=== PATIENT | female | born 1990 | race Caucasian/White ===

== ENCOUNTER 2018-05-01 19:58 | Emergency (ER) | payer MEDICAID, MEDICARE ==
[~2018-05-01] VITALS: Ht 160 cm; Wt 56.7 kg
[2018-05-01 20:07] VITALS: BP 105/65
== END 2018-05-01 21:46 | disposition home or self-care (01) ==
LOC: ED 21:40
DX: R07.89 Other chest pain (principal); F17.210 Nicotine dependence, cigarettes, uncomplicated; R05 Cough
CPT/HCPCS: 71046; 93005; 99284

== ENCOUNTER 2018-09-23 18:17 | Emergency (ER) | payer SELFPAY ==
[~2018-09-23] VITALS: Ht 160 cm; Wt 65.7 kg
[2018-09-23 18:21] VITALS: BP 107/73
[2018-09-23] MEDS ORDERED: LIDOCAINE 1%, 10ML INFIL ONE (19:00)
[2018-09-23] MEDS ORDERED: LIDOCAINE-MPF 1%, 5ML ONE (19:08)
[2018-09-23] MEDS ORDERED: SULFAMETH./TRIMETHOPRIM DS 800MG/160MG TABLET ONE (19:50)
[2018-09-23] MEDS ORDERED: CEPHALEXIN 500 MG CAPSULE ONE (19:50)
[2018-09-23] MEDS ORDERED: CEPHALEXIN 500 MG CAPSULE PO ONE (20:00)
[2018-09-23] MEDS ORDERED: SULFAMETH./TRIMETHOPRIM DS 800MG/160MG TABLET PO ONE (20:00)
== END 2018-09-23 20:14 | disposition home or self-care (01) ==
LOC: ED 20:04
DX: L03.114 Cellulitis of left upper limb (principal); L02.414 Cutaneous abscess of left upper limb
CPT/HCPCS: 10060; 99283; J3490

== ENCOUNTER 2019-02-13 12:30 | Emergency (ER) | payer SELFPAY ==
[~2019-02-13] VITALS: Ht 160 cm; Wt 68.0 kg
[2019-02-13 12:34] VITALS: BP 124/73
--- NOTE | 2019-02-13 12:43 | NUR ---
FIRST CONTACT WITH PT. PT STATES "I HAVE HIVES ALL OVER MY LEGS FOR THE LAST 3 DAYS. I DO HEROIN. I SHOT UP ON MY RIGHT CALF ABOUT 2 WEEKS AGO AND I HAVE THIS SORE." PT HAS BEEN USING HYDROCORTISONE ONLY. PT DENIES ANY OTHER SYMPTOMS. PT'S AOX4. RESPS EVEN AND UNLABORED.
[2019-02-13] MEDS ORDERED: DIPHENHYDRAMINE 25 MG CAPSULE ONE (12:52)
[2019-02-13] MEDS ORDERED: FAMOTIDINE 20 MG TABLET ONE (12:52)
--- NOTE | 2019-02-13 12:56 | NUR ---
PT MEDICATED PER EMAR. PT TOELRATED WELL.
[2019-02-13] MEDS ORDERED: DIPHENHYDRAMINE 25 MG CAPSULE PO ONE (13:00)
[2019-02-13] MEDS ORDERED: FAMOTIDINE 20 MG TABLET PO ONE (13:00)
[2019-02-13 13:22] LABS: ALANINE AMINOTRANSFERASE 69 U/L (12-78); ALBUMIN 3.4 g/dL (3.4-5.0); ANION GAP 5 mmol/L (5-15); CALCIUM 8.3 mg/dL (8.5-10.1); CHLORIDE 107 mmol/L (98-107)
[2019-02-13 13:25] LABS: ALKALINE PHOSPHATASE 61 U/L (45-117); BILIRUBIN,TOTAL 0.3 mg/dL (0.2-1.0); TOTAL PROTEIN 7.9 g/dL (6.4-8.2)
[2019-02-13 13:52] LABS: MEAN CORPUSCULAR HEMOGLOBIN 32.5 pg (27.0-34.8); MEAN CORPUSCULAR HGB CONC 33.1 g/dL (32.4-35.8); MEAN CORPUSCULAR VOLUME 98.1 fL (80-100); MEAN PLATELET VOLUME 9.3 fL (7.4-10.4); PLATELET COUNT 165 x10^3/uL (130-400); RED BLOOD COUNT 3.89 x10^6/uL (3.82-5.3); RED CELL DISTRIBUTION WIDTH 13.2 % (9.6-15.2)
[2019-02-13 13:54] LABS: MD YES
[2019-02-13 13:56] LABS: EOS#(MANUAL) 0.73 x10^3/uL (0.0-0.4); EOS% (MANUAL) 11 % (1-7); LYMPH#(MANUAL) 2.71 x10^3/uL (1-3.4); LYMPHS% (MANUAL) 41 % (22-44); MONOS#(MANUAL) 0.33 x10^3/uL (0.3-2.7); MONOS% (MANUAL) 5 % (2-9); SEG#(MANUAL) 2.84 x10^3/uL (1.8-6.8); SEGS% (MANUAL) 43 % (42-75)
[2019-02-13 13:57] LABS: <PLATELET ESTIMATE> ADEQUATE; <RBC MORPHOLOGY> NORMAL
[2019-02-13 13:58] LABS: <PLT MORPHOLOGY> NORMAL PLT MORPH
--- NOTE | 2019-02-13 14:30 | NUR ---
PT GIVEN DC INSTRUCTIONS AND SCRIPTS. PT EDUCATED REGARIDNG DC MEDICATIONS. PT'S AOX4. RESPS EVEN AND UNLABORED. PT AMB TO DC WITH STEADY GAIT. NO ACUTE DISTRESS AT DC.
== END 2019-02-13 14:31 | disposition home or self-care (01) ==
LOC: ED 14:25
DX: L50.9 Urticaria, unspecified (principal); L03.116 Cellulitis of left lower limb; L03.115 Cellulitis of right lower limb
CPT/HCPCS: 36415; 80053; 85025; 93970; 99284; J7512; Q0163

== ENCOUNTER 2019-03-05 18:19 | Emergency (ER) | payer SELFPAY ==
[~2019-03-05] VITALS: Ht 160 cm; Wt 71.6 kg
--- NOTE | 2019-03-05 18:52 | NUR ---
no answer in lobby
--- NOTE | 2019-03-05 20:58 | NUR ---
PT RETURNED FROM ULTRASOUND. LAB NOW AT BEDSIDE.
[2019-03-05 21:29] LABS: BASOPHILS # (AUTO) 0.01 x10^3/uL (0-0.1); BASOPHILS % (AUTO) 0 % (0-1); EOSINOPHILS # (AUTO) 0.84 x10^3/uL (0-0.4); EOSINOPHILS % (AUTO) 15 % (1-7); LYMPHOCYTES # (AUTO) 1.66 x10^3/uL (1-3.4); LYMPHOCYTES % (AUTO) 30 % (22-44); MD NO; MEAN CORPUSCULAR HEMOGLOBIN 32.7 pg (27.0-34.8); MEAN CORPUSCULAR HGB CONC 33.4 g/dL (32.4-35.8); MEAN CORPUSCULAR VOLUME 97.8 fL (80-100); MONOCYTES % (AUTO) 9 % (2-9); NEUTROPHILS # (AUTO) 2.53 x10^3/uL (1.8-6.8); NEUTROPHILS % (AUTO) 46 % (42-75); PLATELET COUNT 239 x10^3/uL (130-400); RED BLOOD COUNT 3.79 x10^6/uL (3.82-5.3)
[2019-03-05 21:43] LABS: ALANINE AMINOTRANSFERASE 142 U/L (12-78); ALBUMIN 3.2 g/dL (3.4-5.0); ANION GAP 7 mmol/L (5-15); CALCIUM 8.2 mg/dL (8.5-10.1); CHLORIDE 106 mmol/L (98-107)
[2019-03-05 21:47] LABS: ALKALINE PHOSPHATASE 65 U/L (45-117); BILIRUBIN,TOTAL 0.3 mg/dL (0.2-1.0); TOTAL PROTEIN 7.4 g/dL (6.4-8.2)
[2019-03-05 22:08] VITALS: BP 94/50
[2019-03-05 22:27] LABS: CULTURE INDICATED? YES; MICROSCOPIC INDICATED
== END 2019-03-05 22:11 | disposition home or self-care (01) ==
LOC: ED 19:24
DX: R60.0 Localized edema (principal); M79.605 Pain in left leg; M79.604 Pain in right leg; F17.200 Nicotine dependence, unspecified, uncomplicated
CPT/HCPCS: 36415; 71046; 80053; 81001; 83880; 85025; 87086; 93005; 93970; 99284

== ENCOUNTER 2019-09-13 16:47 | Inpatient (IN) | payer SELFPAY ==
[~2019-09-13] VITALS: Ht 160 cm; Wt 67.8 kg
--- NOTE | 2019-09-13 18:15 | NUR ---
assumed care of pt. pt here for multiple c/o. states that she has "lumps" on her head, and that she has a diffuse rash on her torso anterior and posterior. pt also c/o painful intercourse, but denies new partner. denies vaginal bleeding or D/C. pt is lethargic and falling asleep in the middle of her sentences. admits to using IV heroin and smoking methamphetamine. no apparent resp. distress. no family at bedside. lab has been to bedside to draw
--- NOTE | 2019-09-13 18:31 | NUR ---
CXR has been to bedside
[2019-09-13 18:32] LABS: ANION GAP 7 mmol/L (5-15); CALCIUM 8.3 mg/dL (8.5-10.1); CHLORIDE 107 mmol/L (98-107); CREATININE 0.68 mg/dL (0.55-1.02)
[2019-09-13 18:42] LABS: HCT (SEDRATE) 34.9 % (34.6-47.8)
[2019-09-13 18:43] LABS: BASOPHILS # (AUTO) 0.02 x10^3/uL (0-0.1); BASOPHILS % (AUTO) 0 % (0-1); EOSINOPHILS # (AUTO) 0.22 x10^3/uL (0-0.4); EOSINOPHILS % (AUTO) 3 % (1-7); LYMPHOCYTES # (AUTO) 1.89 x10^3/uL (1-3.4); LYMPHOCYTES % (AUTO) 25 % (22-44); MD NO; MEAN CORPUSCULAR HEMOGLOBIN 30.4 pg (27.0-34.8); MEAN CORPUSCULAR HGB CONC 32.7 g/dL (32.4-35.8); MEAN CORPUSCULAR VOLUME 93.1 fL (80-100); MONOCYTES % (AUTO) 9 % (2-9); NEUTROPHILS % (AUTO) 62 % (42-75); PLATELET COUNT 372 x10^3/uL (130-400); RED BLOOD COUNT 3.76 x10^6/uL (3.82-5.3); RED CELL DISTRIBUTION WIDTH 13.4 % (9.6-15.2)
--- NOTE | 2019-09-13 18:43 | NUR ---
pt sleeping. easily arousable
--- NOTE | 2019-09-13 19:00 | NUR ---
report from robert curran
--- NOTE | 2019-09-13 19:02 | NUR ---
pt to US. report to Tammy RÍOS
--- NOTE | 2019-09-13 19:21 | NUR ---
US at bedside.
[2019-09-13] MEDS ORDERED: CEFTRIAXONE PMX 1GM/50ML 50 ML IV ONE ×2 (20:00→21:30)
--- NOTE | 2019-09-13 20:08 | NUR ---
report to robert henderson
--- NOTE | 2019-09-13 20:26 | NUR ---
robert bernabe at bedside for US iv placement
--- NOTE | 2019-09-13 20:27 | NUR ---
per robert curran 2 sets of blood cultures drawn
[2019-09-13] MEDS ORDERED: CEFTRIAXONE PMX 1GM/50ML 50 ML ONE (20:28)
--- NOTE | 2019-09-13 20:38 | NUR ---
srinivasa attempting to place IV with difficulty due to pt's IV drug use
[2019-09-13] MEDS: SODIUM CHLORIDE 0.9% 1,000 ML IV SCH ×2 (21:07→23:11)
[2019-09-13] MEDS ORDERED: ACETAMINOPHEN 325 MG TABLET PO PRN (21:30)
[2019-09-13] MEDS ORDERED: ONDANSETRON 2MG/ML, 2ML IVPush PRN (21:30)
[2019-09-13] MEDS ORDERED: DOXYCYCLINE 100 MG in DEXTROSE 5% 250 ML IV SCH (21:30)
[2019-09-13] MEDS ORDERED: ONDANSETRON ODT 4 MG PO PRN (21:30)
[2019-09-13] MEDS ORDERED: POLYETHYLENE GLYCOL 17 GM PACKET PO PRN (21:30)
[2019-09-13] MEDS ORDERED: DOCUSATE 100 MG CAPSULE PO PRN (21:30)
[2019-09-13] MEDS ORDERED: OXYcodone IR 5MG TABLET PO PRN (21:30)
[2019-09-13] MEDS ORDERED: ENOXAPARIN 40 MG/0.4 ML SQ SCH (21:30)
[2019-09-13] MEDS ORDERED: morphine SULFATE 10 MG/ML, 1ML IVPush PRN (21:30)
[2019-09-13] MEDS ORDERED: PROMETHAZINE 25 MG/ML, 1ML IM PRN (21:30)
[2019-09-13] MEDS ORDERED: BISACODYL 10 MG SUPP PR PRN (21:30)
--- NOTE | 2019-09-13 21:44 | NUR ---
robert vences in to attempt iv access
[2019-09-13 22:19] LABS: FREE T4 (FREE THYROXINE) 1.48 ng/dL (0.76-1.46)
--- NOTE | 2019-09-13 22:41 | NUR ---
unable to obtain iv access. dr nova notified via phone. pt sent upstairs and recieving robert henderson notified. dr nova said he is going to change the orders for IV rocephin to IM rocephin. santiago notified and aware of orders to be changed.
[2019-09-13 22:59] VITALS: BP 94/62
[2019-09-13] MEDS ORDERED: DOXYCYCLINE 100MG TABLET PO SCH (23:00)
[2019-09-14 01:36] VITALS: BP 98/63
[2019-09-14] MEDS ORDERED: CEFTRIAXONE PMX 2GM/50ML 50 ML IV SCH (17:00)
== END 2019-09-14 04:15 | disposition left against medical advice (07) | DRG 195 ==
LOC: ED 20:15 → EDIP 21:43 → 3N 22:50
PROVIDERS: ADMIT Internal Medicine; ATTEND Internal Medicine
DX: J18.9 Pneumonia, unspecified organism (principal); L50.9 Urticaria, unspecified; N94.10 Unspecified dyspareunia; H02.844 Edema of left upper eyelid; F17.210 Nicotine dependence, cigarettes, uncomplicated; Z53.21 Procedure and treatment not carried out due to patient leaving prior to being seen by health care provider; F11.10 Opioid abuse, uncomplicated; Z80.41 Family history of malignant neoplasm of ovary; Z88.8 Allergy status to other drugs, medicaments and biological substances
CPT/HCPCS: 36415; 71045; 76830; 80048; 82040; 83036; 83735; 84439; 84443; 84703; 85025; 85651; 86140; 87040; 87806; 93005; 99285; G0378; G0475

== ENCOUNTER 2020-01-18 22:38 | Emergency (ER) | payer SELFPAY ==
[~2020-01-18] VITALS: Ht 160 cm; Wt 69.9 kg
[2020-01-18 23:08] VITALS: BP 116/77
--- NOTE | 2020-01-18 23:08 | NUR ---
ZONIA RN ASSISTING PRIMARY RN JOVANNY. 29 Y/O F PRESENTS STATING "FELL AND HURT MY HAND ABOUT 12 HOURS AGO BUT IT'S BEEN SWELLING FOR LIKE 24 HOURS. MY WRIST, HAND AND LOWER ARM HURT, I GOT MY RING OFF FOR YOU GUYS, I THINK IT'S BROKEN AND I NEED A CAST TO GO." PT WITH SIGNIFICANT SWELLING TO RAND HAND AND WRIST. CMS INTACT, CAP REFILL BRISK. RADIAL PULSE DIFFICULT TO PALPATE DUE TO PT PAIN LEVEL, UNABLE TO TOLERATE PALPATION, BRACHIAL PULSE NORMAL AND STRONG. SKIN WARM, DRY. ECCYMOSIS AND ERYTHEMA PRESENT. RATES PAIN 10/10. PT ABLE TO MOVE RUE SLOWLY WITH SIGNIFICANT REPORT OF PAIN. PT DROWSY, DIFFICULTY KEEPING EYES OPEN BUT CONVERSES AND ANSWERS QUESTIONS APPROPRIATELY, A&OX4. REPORTS "USED HERION AROUND 3 HOURS AGO." SIGNIFICANT OTHER AT BEDSIDE. FALL PRECAUTIONS IN PLACE. SIDE RAILS UPX2. RUE ELEVATED AND SUPPORTED WITH ICE PACKS APPLIED FOR SWELLING AND PAIN. AWAITING EVAL BY ERP.
--- NOTE | 2020-01-18 23:20 | NUR ---
TILA TAYLOR AT BEDSIDE FOR EVALUATION
--- NOTE | 2020-01-18 23:30 | NUR ---
REPORT AND TRANSFER OF CARE TO PRIMARY RN'S KEVEN.
--- NOTE | 2020-01-19 01:31 | NUR ---
Pt splinted and provided sling. While explaining discharge information, pt asked for a prescription for pain medication. When explaining that we would not be providing a prescription for narcotics, pt got angry and stated "like your norcos would go up against the gram of herion I use daily." Pt provided dc papers and ambulated with friend out of ER
== END 2020-01-19 01:36 | disposition home or self-care (01) ==
LOC: ED 01-19 00:27
DX: S62.306A Unspecified fracture of fifth metacarpal bone, right hand, initial encounter for closed fracture (principal); S52.91XA Unspecified fracture of right forearm, initial encounter for closed fracture; W01.0XXA Fall on same level from slipping, tripping and stumbling without subsequent striking against object, initial encounter; Y93.89 Activity, other specified; Y92.89 Other specified places as the place of occurrence of the external cause; Y99.8 Other external cause status
CPT/HCPCS: 29125; 99284

== ENCOUNTER 2020-09-07 06:19 | Emergency (ER) | payer MEDICAID ==
[~2020-09-07] VITALS: Ht 160 cm; Wt 72.9 kg
[2020-09-07 06:59] VITALS: BP 128/72
== END 2020-09-07 07:01 | disposition home or self-care (01) ==
LOC: ED 06:30
DX: J34.0 Abscess, furuncle and carbuncle of nose (principal)
CPT/HCPCS: 99283

== ENCOUNTER 2020-12-08 00:21 | Outpatient (CLI) | payer MEDICAID ==
[2020-12-08 00:53] LABS: MICROSCOPIC INDICATED
[2020-12-08 00:59] LABS: AMPHETAMINE SCREEN, URINE Positive (Negative); BARBITURATE SCREEN, URINE Negative (Negative); BENZODIAZEPINE SCREEN, URINE Negative (Negative); CANNABINOID SCREEN, URINE Negative (Negative); COCAINE SCREEN, URINE Negative (Negative); METHADONE SCREEN, URINE Negative (Negative); OPIATE SCREEN, URINE Positive (Negative)
[2020-12-08 01:56] LABS: BASOPHILS % (AUTO) 1 % (0-1); EOSINOPHILS % (AUTO) 2 % (1-7); LYMPHOCYTES % (AUTO) 22 % (22-44); MEAN CORPUSCULAR HEMOGLOBIN 30.9 pg (27.0-34.8); MEAN CORPUSCULAR HGB CONC 34.2 g/dL (32.4-35.8); MEAN PLATELET VOLUME 9.2 fL (7.4-10.4); MONOCYTES % (AUTO) 9 % (2-9); NEUTROPHILS % (AUTO) 67 % (42-75); PLATELET COUNT 194 x10^3/uL (130-400); RED BLOOD COUNT 3.18 x10^6/uL (3.82-5.3); RED CELL DISTRIBUTION WIDTH 13.7 % (9.6-15.2)
[2020-12-08 02:05] LABS: MD NO
[2020-12-08 02:06] LABS: ALANINE AMINOTRANSFERASE 46 U/L (12-78); ALBUMIN 2.4 g/dL (3.4-5.0); ANION GAP 6 mmol/L (5-15); CALCIUM 7.9 mg/dL (8.5-10.1); CHLORIDE 110 mmol/L (98-107); CREATININE 0.52 mg/dL (0.55-1.02)
[2020-12-08 02:09] LABS: ALKALINE PHOSPHATASE 155 U/L (45-117); BILIRUBIN,TOTAL 0.4 mg/dL (0.2-1.0); TOTAL PROTEIN 6.7 g/dL (6.4-8.2)
[2020-12-08] MEDS ORDERED: ACYC15OI17 PO (02:41)
[2020-12-08] MEDS ORDERED: ACYC200C13 PO (02:41)
[2020-12-08] MEDS ORDERED: FERR324T5 PO (02:43)
[2020-12-08] MEDS ORDERED: DOCU-131 PO (02:44)
== END 2020-12-08 02:51 | disposition home or self-care (01) ==
LOC: LDOP 00:21
PROVIDERS: ATTEND Student in an Organized Health Care Education/Training Program
DX: O12.03 Gestational edema, third trimester (principal); Z3A.34 34 weeks gestation of pregnancy
CPT/HCPCS: 36415; 59025; 76805; 80053; 80307; 81001; 82570; 84156; 84550; 85025; 86592; 86762; 86780; 86850; 86900; 87086; 87340; 87491; 87591; 87806; G0475

== ENCOUNTER 2020-12-15 06:19 | Emergency (ER) | payer MEDICAID ==
[~2020-12-15] VITALS: Ht 160 cm; Wt 80.2 kg
[~2020-12-15 06:19] MED LIST: ACYC15OI17 PO; ACYC200C13 PO; DOCU-131 PO; FERR324T5 PO
[2020-12-15 06:21] VITALS: BP 120/82
--- NOTE | 2020-12-15 06:32 | NUR ---
ON 12/08 PT HADA POSITVE SYPHILIS TEST AND WAS CALLED AND TOLD TO COME BACK FOR A SHOT
[2020-12-15] MEDS ORDERED: BICILLIN-LA 2,400,000 UNITS/4 ML IM ONE (07:00)
== END 2020-12-15 07:20 | disposition home or self-care (01) ==
LOC: ED 06:54
DX: A51.0 Primary genital syphilis (principal)
CPT/HCPCS: 96372; 99283; J0561

== ENCOUNTER 2021-01-21 14:23 | Inpatient (IN) | payer MEDICAID ==
[~2021-01-21] VITALS: Ht 160 cm; Wt 88.2 kg
[2021-01-21 14:54] VITALS: BP 121/81
[2021-01-21] MEDS ORDERED: METOCLOPRAMIDE 5 MG/ML, 2ML ONE (15:14)
[2021-01-21] MEDS ORDERED: SODIUM CITRATE/CITRIC ACID 15 ML UDC ONE (15:15)
[2021-01-21] MEDS ORDERED: SODIUM BICARBONATE 1 MEQ/ML, 50ML VIAL ONE (15:22)
[2021-01-21] MEDS ORDERED: FENTANYL PF 100 MCG/2ML ONE (15:22)
[2021-01-21] MEDS ORDERED: DEXAMETHASONE 4 MG/ML, 1ML ONE (15:22)
[2021-01-21] MEDS ORDERED: PHENYLEPHRINE 10 MG/ML ONE (15:22)
[2021-01-21] MEDS ORDERED: EPHEDRINE 50 MG/ML, 1ML ONE (15:22)
[2021-01-21] MEDS ORDERED: KETOROLAC 30 MG/1 ML ONE (15:22)
[2021-01-21] MEDS ORDERED: CEFAZOLIN 1,000 MG ONE (15:22)
[2021-01-21] MEDS ORDERED: ONDANSETRON 2MG/ML, 2ML ONE (15:22)
[2021-01-21] MEDS ORDERED: OXYTOCIN 10 UNITS/ML, 1ML ONE (15:22)
[2021-01-21] MEDS ORDERED: ONDANSETRON 2MG/ML, 2ML IVPush ONE (15:30)
[2021-01-21] MEDS ORDERED: AZITHROMYCIN 500 MG in SODIUM CHLORIDE 0.9% 250 ML IV ONE ×2 (15:30→16:00)
[2021-01-21] MEDS ORDERED: LACTATED RINGERS 1,000 ML IVBOLUS ONE ×2 (15:30→16:00)
[2021-01-21 15:34] LABS: BASOPHILS % (AUTO) 1 % (0-1); EOSINOPHILS % (AUTO) 2 % (1-7); LYMPHOCYTES % (AUTO) 21 % (22-44); MEAN CORPUSCULAR HEMOGLOBIN 29.5 pg (27.0-34.8); MEAN CORPUSCULAR HGB CONC 33.4 g/dL (32.4-35.8); MEAN PLATELET VOLUME 9.8 fL (7.4-10.4); MONOCYTES % (AUTO) 8 % (2-9); NEUTROPHILS % (AUTO) 69 % (42-75); PLATELET COUNT 124 x10^3/uL (130-400); RED BLOOD COUNT 3.58 x10^6/uL (3.82-5.3); RED CELL DISTRIBUTION WIDTH 16.1 % (9.6-15.2)
[2021-01-21] MEDS ORDERED: hydrALAzine 20 MG/ML, 1ML IV PRN (16:00)
[2021-01-21] MEDS ORDERED: MIDAZOLAM 1 MG/ML, 2ML IV PRN (16:00)
[2021-01-21] MEDS ORDERED: FENTANYL PF 100 MCG/2ML IV PRN (16:00)
[2021-01-21] MEDS ORDERED: LABETALOL 5MG/ML, 20ML IV PRN (16:00)
[2021-01-21] MEDS ORDERED: OXYcodone 5 MG/5 ML ORAL.SOL UDC PO PRN (16:00)
[2021-01-21] MEDS ORDERED: METOPROLOL 1 MG/ML, 5ML IV PRN (16:00)
[2021-01-21] MEDS ORDERED: MEPERIDINE/PF 25MG/0.5ML IVPush PRN (16:00)
[2021-01-21] MEDS ORDERED: METOCLOPRAMIDE 5 MG/ML, 2ML IV ONE (16:00)
[2021-01-21] MEDS ORDERED: HYDROcodone/APAP 7.5-325MG/15ML UDC PO PRN (16:00)
[2021-01-21] MEDS ORDERED: PROMETHAZINE 25 MG/ML, 1ML IV PRN (16:00)
[2021-01-21] MEDS ORDERED: ALBUTEROL/IPRATROPIUM 2.5MG/0.5MG, 3 ML NPPB PRN (16:00)
[2021-01-21] MEDS ORDERED: ONDANSETRON 2MG/ML, 2ML IVPush PRN (16:00)
[2021-01-21] MEDS ORDERED: SODIUM CITRATE/CITRIC ACID 30 ML UDC PO ONE (16:00)
[2021-01-21] MEDS ORDERED: HYDROmorphone 2 MG/ML, 1ML IVPush PRN (16:00)
[2021-01-21] MEDS ORDERED: NEWBORN KIT ONE (16:06)
[2021-01-21 16:25] LABS: AMPHETAMINE SCREEN, URINE Positive (Negative); BARBITURATE SCREEN, URINE Negative (Negative); BENZODIAZEPINE SCREEN, URINE Negative (Negative); CANNABINOID SCREEN, URINE Negative (Negative); COCAINE SCREEN, URINE Negative (Negative); METHADONE SCREEN, URINE Negative (Negative); OPIATE SCREEN, URINE Positive (Negative)
[2021-01-21] MEDS ORDERED: HYDROmorphone 2 MG/ML, 1ML ONE (16:48)
[2021-01-21] MEDS ORDERED: OXYTOCIN 30U/ 0.9% NaCL 500ML 500 ML ONE (17:10)
[2021-01-21] MEDS ORDERED: OXYcodone/APAP 5/325MG TABLET PO PRN (18:00)
[2021-01-21] MEDS ORDERED: METOCLOPRAMIDE 5 MG/ML, 2ML IV PRN (18:00)
[2021-01-21] MEDS: KETOROLAC 30 MG/1 ML IV SCH (18:00)
[2021-01-21] MEDS ORDERED: ACETAMINOPHEN 325 MG TABLET PO PRN (18:00)
[2021-01-21] MEDS ORDERED: RHOGAM FROM BLOOD BANK 1 NOTE EA IM/IV ONE (18:00)
[2021-01-21] MEDS ORDERED: ONDANSETRON 2MG/ML, 2ML IV PRN (18:00)
[2021-01-21] MEDS ORDERED: KETOROLAC 30 MG/1 ML IV PRN ×2 (18:00)
[2021-01-21] MEDS ORDERED: MORPHINE SULFATE 4 MG/ML, 1ML IVPush PRN (18:00)
[2021-01-21] MEDS ORDERED: SIMETHICONE 80 MG CHEW TAB PO PRN (18:00)
[2021-01-21] MEDS ORDERED: MISOPROSTOL 200 MCG TABLET PR PRN (18:00)
[2021-01-21] MEDS ORDERED: TRANEXAMIC ACID 100 MG/ML, 10ML IV ONE (18:00)
[2021-01-21 18:09] LABS: ALANINE AMINOTRANSFERASE 32 U/L (12-78); ALBUMIN 2.4 g/dL (3.4-5.0); ANION GAP 7 mmol/L (5-15); BILIRUBIN, DIRECT 0.1 mg/dL (0.1-0.2); CALCIUM 7.8 mg/dL (8.5-10.1); CHLORIDE 108 mmol/L (98-107); CREATININE 0.53 mg/dL (0.55-1.02)
[2021-01-21 18:11] LABS: ALKALINE PHOSPHATASE 193 U/L (45-117); BILIRUBIN,TOTAL 0.3 mg/dL (0.2-1.0); TOTAL PROTEIN 6.6 g/dL (6.4-8.2)
[2021-01-21] MEDS: OXYTOCIN 30U/ 0.9% NaCL 500ML 500 ML IV SCH (18:35)
[2021-01-21] MEDS: LACTATED RINGERS 1,000 ML IV SCH (19:00)
[2021-01-21 20:00] VITALS: BP 111/72
[2021-01-21 22:07] LABS: MICROSCOPIC INDICATED
[2021-01-21] MEDS: OXYcodone/APAP 5/325MG TABLET PO PRN (23:03)
[2021-01-22] VITALS: BP 130/78
[2021-01-22] MEDS: KETOROLAC 30 MG/1 ML IV SCH ×4 (00:16→18:29)
[2021-01-22 01:00] LABS: BASOPHILS % (AUTO) 0 % (0-1); EOSINOPHILS % (AUTO) 0 % (1-7); LYMPHOCYTES % (AUTO) 9 % (22-44); MEAN CORPUSCULAR HEMOGLOBIN 29.4 pg (27.0-34.8); MEAN CORPUSCULAR HGB CONC 32.5 g/dL (32.4-35.8); MEAN PLATELET VOLUME 10.4 fL (7.4-10.4); MONOCYTES % (AUTO) 4 % (2-9); NEUTROPHILS % (AUTO) 87 % (42-75); PLATELET COUNT 121 x10^3/uL (130-400); RED BLOOD COUNT 3.38 x10^6/uL (3.82-5.3); RED CELL DISTRIBUTION WIDTH 16.2 % (9.6-15.2)
[2021-01-22 04:00] VITALS: BP 128/82
[2021-01-22] MEDS: OXYTOCIN 30U/ 0.9% NaCL 500ML 500 ML IV SCH (04:00)
[2021-01-22] MEDS: OXYcodone/APAP 5/325MG TABLET PO PRN ×4 (04:31→16:33)
[2021-01-22] MEDS: LACTATED RINGERS 1,000 ML IV SCH (05:00)
[2021-01-22] MEDS: PRENATAL VIT/IRON/FA 1 EACH TABLET PO SCH ×2 (07:23→08:36)
[2021-01-22] MEDS: MEPERIDINE/PF 50 MG/ML IVPush PRN ×3 (07:23→15:11)
[2021-01-22] MEDS: DOCUSATE 100 MG CAPSULE PO PRN ×2 (07:23→08:36)
[2021-01-22 07:50] VITALS: BP 115/70
[2021-01-22] MEDS ORDERED: MEPERIDINE/PF 100 MG/ML IM PRN (09:00)
[2021-01-22] MEDS ORDERED: NICOTINE 21 MG/24 HR PATCH.TD24 ONE (09:08)
[2021-01-22] MEDS ORDERED: NICOTINE 21 MG/24 HR PATCH.TD24 TD SCH (09:30)
[2021-01-22] MEDS: morphine SULFATE 10 MG/ML, 1ML IM PRN ×3 (10:17→16:33)
[2021-01-22] MEDS ORDERED: MEPERIDINE/PF 50 MG/ML ONE (11:15)
[2021-01-22 12:20] VITALS: BP 136/83
[2021-01-22 16:27] VITALS: BP 116/72
[2021-01-22] MEDS ORDERED: morphine SULFATE 10 MG/ML, 1ML IV PRN (18:00)
[2021-01-23] MEDS ORDERED: IBUPROFEN 600 MG TABLET PO PRN (18:00)
== END 2021-01-22 19:51 | disposition left against medical advice (07) | DRG 787 ==
LOC: LDOP 14:23 → LDIP 15:09 → 2NW 19:15
PROVIDERS: ADMIT Obstetrics & Gynecology; ATTEND Obstetrics & Gynecology
PROC: 10D00Z1 Extraction of Products of Conception, Low, Open Approach (ICD-10-PCS; principal; 2021-01-21)
DX: O76 Abnormality in fetal heart rate and rhythm complicating labor and delivery (principal); O99.324 Drug use complicating childbirth; F19.90 Other psychoactive substance use, unspecified, uncomplicated; O77.0 Labor and delivery complicated by meconium in amniotic fluid; Z20.822 Contact with and (suspected) exposure to COVID-19; O34.211 Maternal care for low transverse scar from previous cesarean delivery; Z3A.41 41 weeks gestation of pregnancy; Z88.8 Allergy status to other drugs, medicaments and biological substances; Z37.0 Single live birth
CPT/HCPCS: 36415; 80053; 80307; 81001; 82248; 82570; 84112; 84156; 85025; 86592; 86780; 86803; 86850; 86900; 87521; 87635; G0378; J0456; J0690; J1100; J1170; J1885; J2175; J2405; J3010; J2270; J2370; J2590; J7050; J7120